=== PATIENT | male | born 1960 | race Caucasian/White ===

== ENCOUNTER 2016-11-13 06:02 | Emergency (ER) | payer OTHER, MEDICARE ==
[~2016-11-13] VITALS: Ht 172.7 cm; Wt 123.8 kg
[~2016-11-13 06:02] MED LIST: AUGMENTIN 875875 MG PO; IBUPROFEN800 M1 PO; LIDOCAINE VISCO20 ML PO; LISINOP/HCTZ TAB 20- PO; MEDROL DOSEPAK1 PAC PO; MORPHINE SULFAT15 MG PO; PANTOPRAZOLE SO40 MG PO
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
[2016-11-13] MEDS ORDERED: CARDIZEM CD360 M1 PO (07:52)
[2016-11-13] MEDS ORDERED: OXYCONTIN20 M1 PO (07:52)
[2016-11-13] MEDS ORDERED: LISINOPRIL-HCT1 EAC1 PO (07:52)
[2016-11-13] MEDS ORDERED: OXYCODONE HCL5 M1 PO (07:53)
[2016-11-13] MEDS ORDERED: OMEPRAZOLE20 M2 PO (07:53)
--- NOTE | 2016-11-13 08:34 | ULTRASOUND REPORT ---
EXAMINATION: US TRIPLEX LOWER EXTREMITY, RIGHT CLINICAL INFORMATION: Right leg swelling and pain after injury COMPARISON: None TECHNIQUE: Color-flow triplex imaging with spectral analysis and compression Doppler were performed on the lower extremity. FINDINGS: Respiratory variation, normal compression and augmented flow are noted throughout the left lower extremity. The visualized common femoral vein, superficial femoral vein, profunda femoral vein, popliteal vein and midcalf peroneal and posterior tibial venous segments show no evidence of deep venous thrombosis. There is no Moon's cyst. IMPRESSION: Normal triplex scan without evidence of deep venous thrombosis involving the right lower extremity.
[2016-11-13 08:42] VITALS: BP 126/86
== END 2016-11-13 09:04 ==
LOC: ERH 06:02
DX: S80.01XA Contusion of right knee, initial encounter (principal); V20.4XXA Motorcycle driver injured in collision with pedestrian or animal in traffic accident, initial encounter; Y92.9 Unspecified place or not applicable
CPT/HCPCS: 73562-RT